=== PATIENT | female | born 1950 | race Hispanic/Latino ===

== ENCOUNTER 2016-11-08 09:06 | Outpatient (CLI) | payer MEDICARE ==
[2016-11-08 09:54] LABS: Blood Urea Nitrogen 10 mg/dL (7-17)
--- NOTE | 2016-11-10 18:35 | Magnetic Resonance Report ---
MR scan of the cranium was performed with and without contrast. Pulse sequences included: 1. T1 weighted sagittal and axial images without contrast and T1 axial and coronal images with contrast 2. T2 weighted axial and coronal images 3. FLAIR axial images 4. Diffusion-weighted axial images 5. Apparent diffusion coefficient images Views of the posterior fossa showed a normal craniocervical junction. Cerebellar pontine angles were normal with normal seventh-eighth nerve complexes. Brainstem and cerebellum were normal. The ventricular system showed no dilatation or distortion. Images of the hemispheres showed a cyst in the left temporal region. 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 Sinuses, pituitary, flow voids in the ramona of [place], orbits, and basal ganglia were normal. There are no abnormal areas of enhancement with contrast. Impression: Abnormal MR scan of the cranium with and without contrast multiple white matter lesions consistent with the diagnosis of multiple sclerosis left temporal cyst old films were not available for comparison
== END 2016-11-08 09:07 | disposition home or self-care (01) ==
LOC: MRI 09:06
PROVIDERS: ATTEND Specialist
DX: G35 Multiple sclerosis (principal); G93.0 Cerebral cysts; R93.8 Abnormal findings on diagnostic imaging of other specified body structures
CPT/HCPCS: 36415; 70553; 82565; 84520; A9577